=== PATIENT | male | born 1985 | race Caucasian/White ===

== ENCOUNTER → 2020-10-24 | Outpatient (CLI) | payer OTHER ==
[~2020-10-24] VITALS: Ht 185.4 cm; Wt 11.9 kg
[~2020-10-24] MED LIST: FLEXERIL 1010 MG/TAB PO; NEXIUM 40MG40 MG PO; NO HOME MEDICATIONS; NORCO 325 MG-101 TAB PO; NORCO 325 MG-51 TAB PO; SEPTRA DS 8001 TAB PO
[2020-10-24 07:10] VITALS: BP 160/100; PULSE 116
[2020-10-24 08:20] VITALS: BP 123/90; PULSE 94
== END ==
LOC: COL.RAD 06:28
DX: M54.42 Lumbago with sciatica, left side (principal)
CPT/HCPCS: J3301